=== PATIENT | male | born 1980 | race Caucasian/White ===

== ENCOUNTER 2017-06-03 23:15 | Inpatient (IN) | payer OTHER ==
[~2017-06-03] VITALS: Ht 180.3 cm; Wt 111.9 kg
[~2017-06-03 23:15] MED LIST: MAGN400T6 PO; OXYC1TAB3 PO; PARO1TAB27 PO; PROP1TAB PO; THIA100T11 PO; TIZA1CAP2 PO; TRAZ1TAB8 PO; WARF-237 PO; WARF5TAB90 PO
[2017-06-03] MEDS ORDERED: SODIUM CHLORIDE 0.9% 1000ML 1,000 ML IV STA (23:43)
[2017-06-03] MEDS ORDERED: MoRPHine SULFATE 4 MG/ML 1 ML CARP\\VIAL IV STA (23:43)
[2017-06-03] MEDS ORDERED: ONDANSETRON INJ 2 MG/ML 2 ML VIAL IV. SCH (23:45)
--- NOTE | 2017-06-03 23:46 | EMERGENCY ROOM VISIT NOTE ---
History Report prepared by Mirlande: Trip Cesar Under the Supervision of: Dr. Hieu Hernandez D.O. First contact with patient: 23:39 Chief Complaint: ABDOMINAL PAIN Stated Complaint: EXTREME ABD PAIN Nursing Triage Summary: Patient reports bilateral abdominal pain radiating to flanks for the past 2 days. Patient also reports nausea, denies V/D. History of Present Illness The patient is a 36 year old male who presents to the Emergency Room with complaints of bilateral abdominal pain that began a couple days ago. He rates his pain a 9/10 in severity. He notes that his pain is radiating into his bilateral flanks as well as. This has never happened to the patient before. He denies any abdominal surgeries. 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 He denies any fevers, vomiting, diarrhea, or trauma to the area. He is currently nauseated. Source of History: patient Onset: a couple of days ago Position: abdomen (upper) Symptom Intensity: 9/10 Quality: sharp Timing: constant Associated Symptoms: + nausea, + back pain (bilateral flank), No fevers, No vomiting, No diarrhea Review of Systems See HPI for pertinent positives and negatives. A total of ten systems were reviewed and were otherwise negative. Past Medical & Surgical Medical Problems: (1) Abdominal pain (2) Depression (3) DVT (deep venous thrombosis) (4) Migraine (5) TBI (traumatic brain injury) Family History No significant family history Social History Smoking Status: Never Smoker Smokeless Tobacco Use: No Drug Use: none Marital Status: Housing Status: lives with significant other Occupation Status: unemployed Current/Historical Medications Scheduled Magnesium Oxide (Mag-Ox), 400 MG PO DAILY Paroxetine (Paxil), 60 MG PO DAILY Propranolol (Inderal), 60 MG PO DAILY Thiamine Hcl (Vitamin B-1), 100 MG PO DAILY Tizanidine Hcl (Tizanidine Hcl), 4 MG PO HS Trazodone Hcl (Desyrel), 100 MG PO HS Warfarin Sod (Coumadin), 20 MG PO 3XWK Warfarin Sodium (Coumadin), 15 MG PO 4XWK Allergies Coded Allergies: Topiramate (Verified Allergy, Unknown, ? SUICIDAL IDEATIONS, 06/04/17) Physical Exam Vital Signs Date Time Temp Pulse Resp B/P (MAP) Pulse Ox O2 Delivery O2 Flow Rate FiO2 06/04/17 02:11 95 18 136/74 96 Room Air 06/04/17 00:45 88 18 137/80 96 Room Air 06/04/17 00:00 94 06/03/17 23:17 36.9 115 20 139/88 93 Room Air Physical Exam GENERAL: Awake, alert, well-appearing, in no distress HENT: Normocephalic, atraumatic. Oropharynx unremarkable. EYES: Normal conjunctiva. Sclera non-icteric. NECK: Supple. No nuchal rigidity. FROM. No JVD. RESPIRATORY: Clear to auscultation. CARDIAC: Regular rate, normal rhythm. Extremities warm and well perfused. Pulses equal. ABDOMEN: Soft, non-distended. RUQ, LUQ, and mid epigastric tenderness to palpation. No rebound or guarding. No masses. RECTAL: Deferred. MUSCULOSKELETAL: Chest examination reveals no tenderness. The back is symmetrical on inspection without obvious abnormality. There is no CVA tenderness to palpation. No joint edema. Bilateral flank tenderness to palpation. LOWER EXTREMITIES: Calves are equal size bilaterally and non-tender. No edema. No discoloration. NEURO: Normal sensorium. No sensory or motor deficits noted. SKIN: No rash or jaundice noted. Medical Decision & Procedures ER Provider Diagnostic Interpretation: Radiology results as stated below per my review and radiologist interpretation: CT ABDOMEN & PELVIS: There is mild bilateral perinephric and periureteral fat stranding. There is thickening and hyperemia of the urothelium of the bilateral renal pelvises and ureters. Findings are concerning for pyelonephritis. There is mild haziness of the urinary bladder wall. Correlate with urinalysis. No bowel obstruction, appendicitis, or diverticulitis. Radiologist: Inocente Chadwick M.D. Laboratory Results 06/04/17 00:01 Red Blood Count 5.33, Mean Corpuscular Volume 85.6, Mean Corpuscular Hemoglobin 31.9, Mean Corpuscular Hemoglobin Concent 37.3, Mean Platelet Volume 10.2, Neutrophils (%) (Auto) 56.3, Lymphocytes (%) (Auto) 30.3, Monocytes (%) (Auto) 11.1, Eosinophils (%) (Auto) 1.7, Basophils (%) (Auto) 0.3, Neutrophils # (Auto ) 5.56, Lymphocytes # (Auto) 2.99, Monocytes # (Auto) 1.10, Eosinophils # (Auto ) 0.17, Basophils # (Auto) 0.03 06/04/17 00:01 Test 06/04/17 00:01 06/04/17 01:10 White Blood Count 9.88 K/uL (4.8-10.8) Red Blood Count 5.33 M/uL (4.7-6.1) Hemoglobin 17.0 g/dL (14.0-18.0) Hematocrit 45.6 % (42-52) Mean Corpuscular Volume 85.6 fL (80-100) Mean Corpuscular Hemoglobin 31.9 pg (25-34) Mean Corpuscular Hemoglobin Concent 37.3 g/dl (32-36) Platelet Count 282 K/uL (130-400) Mean Platelet Volume 10.2 fL (7.4-10.4) Neutrophils (%) (Auto) 56.3 % Lymphocytes (%) (Auto) 30.3 % Monocytes (%) (Auto) 11.1 % Eosinophils (%) (Auto) 1.7 % Basophils (%) (Auto) 0.3 % Neutrophils # (Auto) 5.56 K/uL (1.4-6.5) Lymphocytes # (Auto) 2.99 K/uL (1.2-3.4) Monocytes # (Auto) 1.10 K/uL (0.11-0.59) Eosinophils # (Auto) 0.17 K/uL (0-0.5) Basophils # (Auto) 0.03 K/uL (0-0.2) RDW Standard Deviation 41.0 fL (36.4-46.3) RDW Coefficient of Variation 13.1 % (11.5-14.5) Immature Granulocyte % (Auto) 0.3 % Immature Granulocyte # (Auto) 0.03 K/uL (0.00-0.02) Prothrombin Time > 100.0 SECONDS Prothromb Time International Ratio > 8.0 (0.9-1.1) Anion Gap 9.0 mmol/L (3-11) Est Creatinine Clear Calc Drug Dose 109.4 ml/min Estimated GFR () 89.6 Estimated GFR (Non- 77.3 BUN/Creatinine Ratio 9.4 (10-20) Calcium Level 8.6 mg/dl (8.5-10.1) Total Bilirubin 0.3 mg/dl (0.2-1) Direct Bilirubin < 0.1 mg/dl (0-0.2) Aspartate Amino Transf (AST/SGOT) 31 U/L (15-37) Alanine Aminotransferase (ALT/SGPT) 54 U/L (12-78) Alkaline Phosphatase 142 U/L (45-117) Total Protein 7.8 gm/dl (6.4-8.2) Albumin 3.8 gm/dl (3.4-5.0) Lipase 252 U/L (73-393) Ethyl Alcohol mg/dL 127.0 mg/dl (0-3) Urine Color YELLOW Urine Appearance CLEAR (CLEAR) Urine pH 5.0 (4.5-7.5) Urine Specific [place] 1.019 (1.000-1.030) Urine Protein TRACE (NEG) Urine Glucose (UA) NEG (NEG) Urine Ketones NEG (NEG) Urine Occult Blood 3+ (NEG) Urine Nitrite NEG (NEG) Urine Bilirubin NEG (NEG) Urine Urobilinogen NEG (NEG) Urine Leukocyte Esterase NEG (NEG) Urine WBC (Auto) 0 /hpf (0-5) Urine RBC (Auto) 10-30 /hpf (0-4) Urine Hyaline Casts (Auto) 0 /lpf (0-5) Urine Epithelial Cells (Auto) 0-5 /lpf (0-5) Urine Bacteria (Auto) NEG (NEG) Laboratory results reviewed by me Medications Administered Medications (Trade) Dose Ordered Sig/Keily Route Start Time Stop Time Status Last Admin Dose Admin Sodium Chloride 1,000 ml @ 999 mls/hr Q1H1M STAT IV 06/03/17 23:43 06/04/17 00:43 DC 06/03/17 23:58 999 MLS/HR Ondansetron HCl (Zofran Inj) 4 mg Q6H IV. 06/03/17 23:45 07/03/17 23:44 06/03/17 23:58 4 MG Morphine Sulfate (MoRPHine SULFATE INJ) 4 mg NOW STAT IV 06/03/17 23:43 06/03/17 23:46 DC 06/03/17 23:59 4 MG Morphine Sulfate (MoRPHine SULFATE INJ) 4 mg NOW STAT IV 06/04/17 01:17 06/04/17 01:18 DC 9/9/17 01:21 4 MG Ondansetron HCl (Zofran Inj) 4 mg NOW STAT IV 06/04/17 01:17 06/04/17 01:18 DC 06/04/17 01:21 4 MG Phytonadione 5 mg/ Sodium Chloride 50.5 ml @ 101 mls/hr ONE ONCE IV 06/04/17 03:00 06/04/17 03:29 DC 06/04/17 03:39 101 MLS/HR ED Course 2339: The patient was evaluated in room A4B. A complete history and physical exam was performed. 2343: Ordered Morphine Sulfate 4 mg IV, Sodium Chloride 1000 ml @ 999 mls/hr IV 2345: Ordered Zofran Inj 4 mg IV 0117: Ordered Zofran Inj 4 mg IV, Morphine Sulfate 4 gm IV 0300: Ordered Phytonadione 5 mg/ Sodium Chloride 50.5 ml @ 101 mls/hr Protocol IV 0308: Upon reexamination, the patient was resting. I discussed the test results and treatment plan with him. I discussed the patient's case with Dr. Jarrett Johnson. The patient will be evaluated for further management. Medical Decision Differential diagnoses include gastritis, gastroenteritis, cholecystitis, pancreatitis, and bowel obstruction. Resting in no distress continues to complain of pain. Case was discussed with the Hospitalist for admit; patient continued to request pain medicine multiple times however and has no etiology on CT for significant pain. Patient does have hematuria and an elevated INR. Patient did receive IV vitamin K, patient will be admitted for continued abdominal pain elevated INR and further differentiate what is actually going on with this patient Medication Reconcilliation Current Medication List: was personally reviewed by me Blood Pressure Screening Patient's blood pressure: Elevated blood pressure Blood pressure disposition: Elevated BP felt to be situational (secondary to pain) Consults Time Called: 0305 Consulting Physician: Dr. Jarrett Johnson Returned Call: [phone] Discussed the patient's case. The patient will be evaluated for further treatment and disposition. Impression Primary Impression: Abdominal pain Additional Impressions: Elevated INR Hematuria Scribe Attestation The scribe's documentation has been prepared under my direction and personally reviewed by me in its entirety. I confirm that the note above accurately reflects all work, treatment, procedures, and medical decision making performed by me. Departure Information Dispostion Being Evaluated By Hospitalist Referrals Palak Copeland M.D. (PCP) Patient Instructions [facility] Problem Qualifiers
[2017-06-04] MEDS ORDERED: OPTIRAY 320 IV PRN
[2017-06-04 00:10] LABS: BASO % 0.3 %; BASO ABS # 0.03 K/uL (0-0.2); COMPLETE YES; EOS % 1.7 %; HEMATOCRIT 45.6 % (42-52); IG% 0.3 %; LYMPH % 30.3 %; LYMPH ABS # 2.99 K/uL (1.2-3.4); MEAN CELL VOLUME 85.6 fL (80-100); MEAN CORPUSCULAR HEMOGLOBIN 31.9 pg (25-34); MEAN CORPUSCULAR HGB CONC 37.3 g/dl (32-36); MEAN PLATELET VOLUME 10.2 fL (7.4-10.4); MONO % 11.1 %; NEUT % 56.3 %; PLATELET COUNT 282 K/uL (130-400); RED BLOOD COUNT 5.33 M/uL (4.7-6.1); WHITE BLOOD COUNT 9.88 K/uL (4.8-10.8)
[2017-06-04 00:39] LABS: ALT/SGPT 54 U/L (12-78); BLOOD UREA NITROGEN 11 mg/dl (7-18); BUN/CREATININE RATIO 9.4 (10-20); CALCIUM 8.6 mg/dl (8.5-10.1); CARBON DIOXIDE 26 mmol/L (21-32); CHLORIDE 102 mmol/L (98-107); GLUCOSE 112 mg/dl (70-99); POTASSIUM 3.8 mmol/L (3.5-5.1); SODIUM 137 mmol/L (136-145)
[2017-06-04 00:42] LABS: ALKALINE PHOSPHATASE 142 U/L (45-117); AST/SGOT 31 U/L (15-37)
[2017-06-04 00:54] LABS: PROTHROMBIN TIME (PATIENT) > 100.0 SECONDS (9.0-12.0)
[2017-06-04] MEDS ORDERED: MoRPHine SULFATE 4 MG/ML 1 ML CARP\\VIAL IV STA (01:17)
[2017-06-04] MEDS ORDERED: ONDANSETRON INJ 2 MG/ML 2 ML VIAL IV STA (01:17)
[2017-06-04 01:26] LABS: INR > 8.0 (0.9-1.1)
[2017-06-04 02:19] LABS: URINE APPEARANCE CLEAR (CLEAR); URINE BILIRUBIN NEG (NEG); URINE COLOR YELLOW; URINE EPITHELIAL CELL AUTO 0-5 /lpf (0-5); URINE NITRITE NEG (NEG); URINE SPECIFIC GRAVITY 1.019 (1.000-1.030); UROBILINOGEN NEG (NEG); ZZUR CULT IF INDIC CLEAN CATCH NO
[2017-06-04 02:20] LABS: MANUAL MICROSCOPIC REQUIRED? NO; REVIEW REQ? NO
[2017-06-04] MEDS ORDERED: PHYTONADIONE INJ 5 MG in SODIUM CHLORIDE 0.9% 50ML 50 ML IV ONE (03:00)
[2017-06-04] MEDS ORDERED: MULTI-VITAMIN INFUSION INJ 10 ML, THIAMINE HCL INJ 100 MG, FoLIC ACID INJ 1 MG in SODIU... IV ONE (04:01)
[2017-06-04] MEDS ORDERED: HYDROmorphone INJ 0.5 MG/0.5 ML SYR ONE (04:05)
[2017-06-04] MEDS ORDERED: PANTOprazole INJ 40 MG in SYRINGE 0 ML IV STA (04:12)
[2017-06-04] MEDS ORDERED: CYCLOBENZAPRINE HCL 5 MG TAB PO ONE (04:12)
[2017-06-04] MEDS ORDERED: HYDROmorphone INJ 0.5 MG/0.5 ML SYR IV STA ×2 (04:14→05:28)
[2017-06-04] MEDS ORDERED: ACETAMINOPHEN 325 MG TAB PO PRN (04:15)
[2017-06-04] MEDS ORDERED: CYCLOBENZAPRINE HCL 5 MG TAB PO PRN (04:15)
[2017-06-04] MEDS ORDERED: LORAZEPAM 1 MG TAB PO PRN ×2 (04:15→07:00)
[2017-06-04] MEDS ORDERED: ONDANSETRON INJ 2 MG/ML 2 ML VIAL IV PRN (04:15)
--- NOTE | 2017-06-04 04:28 | History and Physical ---
History & Physical Date & Time of Service: Jun 04, 2017 at 04:15 Chief Complaint: Extreme Abd Pain Primary Care Physician: No Doctor, Assigned History of Present Illness Source: patient, hospital records 36 year old male with history of Factor V Leiden Deficiency, on chronic coumadin , Depression, presenting with abdominal pain x few days. Patient states that he has been doing fine until last Tuesday when he rode his bike [place], [place]. The next day, he started to have bilateral flank pain. As the days went on, the b/l flank pain progressed, sharp, not related to movement. Denies dysuria, hematuria, fever/chills, admits to some nausea. Patient presented to the ER due to progression of pain. He admits to drinking ~ 4 bottles of beers today. He drinks weekly as per patient. CT abdomen showed possible pyelonephritis although UA was negative for bacteria , WBC but only positive for RBCs. INR 8.5. He was given Vit K IV and Morphine. On exam, patient was seen laying in bed, in mild distress due to pain. Reports flank pain is still severe. Denies other symptoms. Past Medical/Surgical History Medical Problems: (1) Depression Status: Chronic (2) DVT (deep venous thrombosis) Status: Resolved (3) Migraine Status: Chronic (4) TBI (traumatic brain injury) Status: Resolved Family History No significant family history Social History Smoking Status: Never Smoker Smokeless Tobacco Use: No Drug Use: none Marital Status: Occupational Status: unemployed Allergies Coded Allergies: Topiramate (Verified Allergy, Unknown, ? SUICIDAL IDEATIONS, 06/04/17) Home Medications Scheduled Magnesium Oxide (Mag-Ox), 400 MG PO DAILY Paroxetine (Paxil), 60 MG PO DAILY Propranolol (Inderal), 60 MG PO DAILY Thiamine Hcl (Vitamin B-1), 100 MG PO DAILY Tizanidine Hcl (Tizanidine Hcl), 4 MG PO HS Trazodone Hcl (Desyrel), 100 MG PO HS Warfarin Sod (Coumadin), 20 MG PO 3XWK Warfarin Sodium (Coumadin), 15 MG PO 4XWK Review of Systems Constitutional- no fever; no weight loss Eyes- no acute visual changes ENT- no sinus drainage; no pharyngitis Pulmonary- no cough, no wheezing, no shortness of breath Cardiac- no chest pain, no palpitations, no orthopnea, no dependent edema GI- (+) as noted above - no dysuria, no hematuria Musculoskeletal- no arthralgias, no myalgias Derm- no rashes, no new skin lesions, no changing skin lesions Hematologic- no unusual bruising, no unusual bleeding Lymphatics- no adenopathy Endocrine- no polyuria or polydipsia; no heat or cold intolerance Neuro- no headaches, no focal neurologic symptoms Psych- no anxiety, no depression Physical Exam Vital Signs Date Time Temp Pulse Resp B/P (MAP) Pulse Ox O2 Delivery O2 Flow Rate FiO2 06/04/17 04:14 85 06/04/17 04:09 89 16 138/78 94 Room Air 06/04/17 02:11 95 18 136/74 96 Room Air 06/04/17 00:45 88 18 137/80 96 Room Air 06/04/17 00:00 94 06/03/17 23:17 36.9 115 20 139/88 93 Room Air General Appearance: WD/WN, + mild distress (due to pain, but not in respiratory ) Head: normocephalic, atraumatic Eyes: normal inspection, EOMI, sclerae normal ENT: normal ENT inspection, hearing grossly normal, pharynx normal Neck: supple, no adenopathy, thyroid normal, no JVD, trachea midline Respiratory/Chest: chest non-tender, lungs clear, normal breath sounds, no respiratory distress, no accessory muscle use Cardiovascular: regular rate, rhythm, no edema, no JVD, no murmur, normal peripheral pulses Abdomen/GI: normal bowel sounds, non tender, soft, no organomegaly, + pertinent finding Back: normal inspection, no CVA tenderness, + pertinent finding (no flank tenderness) Extremities/Musculoskelatal: normal inspection, no calf tenderness, no pedal edema Neurologic/Psych: flow coordinator II-XII nml as tested, no motor/sensory deficits, alert, normal mood/affect, oriented x 3 Skin: normal color, warm/dry, no rash Lymphatic: no adenopathy Diagnostics Laboratory Results Results Past 24 Hours Test 06/04/17 00:01 06/04/17 01:10 Range/Units White Blood Count 9.88 4.8-10.8 K/uL Red Blood Count 5.33 4.7-6.1 M/uL Hemoglobin 17.0 14.0-18.0 g/dL Hematocrit 45.6 42-52 % Mean Corpuscular Volume 85.6 80-100 fL Mean Corpuscular Hemoglobin 31.9 25-34 pg Mean Corpuscular Hemoglobin Concent 37.3 32-36 g/dl Platelet Count 282 130-400 K/uL Mean Platelet Volume 10.2 7.4-10.4 fL Neutrophils (%) (Auto) 56.3 % Lymphocytes (%) (Auto) 30.3 % Monocytes (%) (Auto) 11.1 % Eosinophils (%) (Auto) 1.7 % Basophils (%) (Auto) 0.3 % Neutrophils # (Auto) 5.56 1.4-6.5 K/uL Lymphocytes # (Auto) 2.99 1.2-3.4 K/uL Monocytes # (Auto) 1.10 0.11-0.59 K/uL Eosinophils # (Auto) 0.17 0-0.5 K/uL Basophils # (Auto) 0.03 0-0.2 K/uL RDW Standard Deviation 41.0 36.4-46.3 fL RDW Coefficient of Variation 13.1 11.5-14.5 % Immature Granulocyte % (Auto) 0.3 % Immature Granulocyte # (Auto) 0.03 0.00-0.02 K/uL Prothrombin Time > 100.0 9.0-12.0 SECONDS Prothromb Time International Ratio > 8.0 0.9-1.1 Sodium Level 137 136-145 mmol/L Potassium Level 3.8 3.5-5.1 mmol/L Chloride Level 102 98-107 mmol/L Carbon Dioxide Level 26 21-32 mmol/L Anion Gap 9.0 3-11 mmol/L Blood Urea Nitrogen 11 7-18 mg/dl Creatinine 1.20 0.60-1.40 mg/dl Est Creatinine Clear Calc Drug Dose 109.4 ml/min Estimated GFR () 89.6 Estimated GFR (Non- 77.3 BUN/Creatinine Ratio 9.4 10-20 Random Glucose 112 70-99 mg/dl Calcium Level 8.6 8.5-10.1 mg/dl Total Bilirubin 0.3 0.2-1 mg/dl Direct Bilirubin < 0.1 0-0.2 mg/dl Aspartate Amino Transf (AST/SGOT) 31 15-37 U/L Alanine Aminotransferase (ALT/SGPT) 54 12-78 U/L Alkaline Phosphatase 142 45-117 U/L Total Protein 7.8 6.4-8.2 gm/dl Albumin 3.8 3.4-5.0 gm/dl Lipase 252 73-393 U/L Ethyl Alcohol mg/dL 127.0 0-3 mg/dl Urine Color YELLOW Urine Appearance CLEAR CLEAR Urine pH 5.0 4.5-7.5 Urine Specific [place] 1.019 1.000-1.030 Urine Protein TRACE NEG Urine Glucose (UA) NEG NEG Urine Ketones NEG NEG Urine Occult Blood 3+ NEG Urine Nitrite NEG NEG Urine Bilirubin NEG NEG Urine Urobilinogen NEG NEG Urine Leukocyte Esterase NEG NEG Urine WBC (Auto) 0 0-5 /hpf Urine RBC (Auto) 10-30 0-4 /hpf Urine Hyaline Casts (Auto) 0 0-5 /lpf Urine Epithelial Cells (Auto) 0-5 0-5 /lpf Urine Bacteria (Auto) NEG NEG Diagnostic Radiology CT abdomen preliminary read: mild perinephric, periureteral stranding, possible Pyelonephritis EKG HR 85, sinus rhythm, non specific t wave inversion lead II Impression Assessment and Plan 36 year old male with history of Factor V Leiden Deficiency, on chronic coumadin , Depression, presenting with abdominal pain x few days. BILATERAL FLANK PAIN POSSIBLE PYELONEPHRITIS, MUSCULAR STRAIN - follow up formal CT abdomen report - ff up urine culture start empiric Ceftriaxone 1mg IV daily PRN Dilaudid 0.5mg IV for severe pain - PRN Flexeril, warm compress SUPRATHERAPEUTIC INR FACTOR V LEIDEN DEFICIENCY, ON CHRONIC COUMADIN - no signs of gross bleeding (+) microscopic hematuria - given Vit K 5mg IV at the ER - repeat INR at 8am ALCOHOL INTOXICATION - alcohol level 120s - admits to drinking 4 beers today drinks weekly - declines Gabapentin taper for alcohol withdrawal prevention will place Alcohol withdrawal protocol including Banana bag and PRN Ativan MICROSCOPIC HEMATURIA - denies gross hematuria - ff up formal CT abdomen/pelvis report monitor DEPRESSION - stable on Paroxetine, Trazodone DVT prophylaxis SCDs INR >8 FULL CODE PER PATIENT DISPOSITION anticipate d/c home when medically stable follows up with a non-[facility] PCP VTE Prophylaxis VTE Risk Assessment Done? Y/N: Yes Risk Level: Moderate Given or contraindicated: SCD's
[2017-06-04 05:30] VITALS: BP 159/98; PULSE 81; TEMP 36.9; O2SAT 98; Ht 180.3 cm; Wt 111.9 kg
[2017-06-04] MEDS ORDERED: NSS + 20MEQ KCL 1000ML 1,000 ML IV SCH ×2 (05:30→12:00)
[2017-06-04] MEDS ORDERED: CEFTRIAXONE SOD INJ 1 GM in DEXTROSE 5% ADD-VANTAGE 50ML 50 ML IV SCH (06:00)
--- NOTE | 2017-06-04 06:24 | DIAGNOSTIC IMAGING REPORT ---
ABD/PELVIS IV CONTRAST ONLY CT DOSE: 781.93 mGy.cm HISTORY: Flank pain pain TECHNIQUE: Multiaxial CT images of the abdomen and pelvis were performed following the use of intravenous contrast. A dose lowering technique was utilized adhering to the principles of ALARA. COMPARISON STUDY: 07/16/2016 FINDINGS: Lung bases are clear. Liver spleen and pancreas are unremarkable. Mild wall edematous change of the ureters and renal pelves bilaterally. Pyelonephritis is considered. Trace perinephric infiltrative change. Nonobstructive bowel pattern. Bladder is midline. IMPRESSION: Possible bilateral bilateral findings. Nonobstructive bowel pattern. The above report was generated using voice recognition software. It may contain grammatical, syntax or spelling errors. Electronically signed by: Sourav Mccauley M.D. 06/04/2017 6:23 AM Dictated Date/Time: 06/04/2017 6:22 AM
[2017-06-04 07:49] LABS: PROTHROMBIN TIME (PATIENT) 68.4 SECONDS (9.0-12.0)
[2017-06-04 07:56] LABS: INR 5.9 (0.9-1.1)
[2017-06-04 07:57] VITALS: BP 131/87; PULSE 84; TEMP 36.8; O2SAT 93
[2017-06-04] MEDS ORDERED: THIAMINE HCL 100 MG TAB PO SCH (09:00)
[2017-06-04] MEDS ORDERED: PROPRANOLOL HCL 20 MG TAB PO SCH (09:00)
[2017-06-04] MEDS ORDERED: PAROXETINE 20 MG TAB PO SCH (09:00)
[2017-06-04] MEDS ORDERED: MAGNESIUM OXIDE 400 MG TAB PO SCH (09:00)
[2017-06-04] MEDS ORDERED: DOCUSATE SODIUM/SENNA 50/8.6MG TAB PO SCH (09:00)
[2017-06-04] MEDS: HYDROmorphone INJ 0.5 MG/0.5 ML SYR IV PRN ×3 (09:24→17:20)
[2017-06-04] MEDS ORDERED: LORAZEPAM INJ 2 MG in SYRINGE 1 ML IV PRN (10:45)
[2017-06-04 16:14] VITALS: BP 142/89; PULSE 71; TEMP 36.7; O2SAT 95
--- NOTE | 2017-06-04 17:50 | DIAGNOSTIC IMAGING REPORT ---
ABDOMEN COMPLETE (US) HISTORY: Pain abdomenal pain. COMPARISON: None. FINDINGS: Pancreas: The pancreas demonstrates a normal echotexture. Liver: Mild fatty infiltration Gallbladder: Trace gallbladder sludge. No shadowing gallstones. CBD: 5 mm Kidneys: No hydronephrosis. Spleen: Slightly prominent at 13 cm Aorta: Normal in caliber. IVC: Patent. IMPRESSION: 1. Slight fatty infiltration of liver. 2. Trace gallbladder sludge. 3. Normal caliber bile ducts. 4. Mild splenomegaly at 13 cm. The above report was generated using voice recognition software. It may contain grammatical, syntax or spelling errors. Electronically signed by: Sourav Mccauley M.D. 06/04/2017 5:49 PM Dictated Date/Time: 06/04/2017 5:48 PM
--- NOTE | 2017-06-04 18:36 | Progress Note ---
Internal Med Progress Note Date of Service: Jun 04, 2017. Provider Documentation: SUBJECTIVE: Patient seen and examined at bedside. Reports abdominal pain resolving. Physical Exam remarkable for tenderness left flank, costovertebral tenderness. Patient denies fevers, chills, dysuria, bowel movements, shortness of breath or chest pain OBJECTIVE: Exam: General-NAD, speaking in full sentences, on room air Eyes- EOMI, no jaundice ENT-nontender, no oral or nasal exudates Neck- nontender, no JVD, trachea midline Lungs- CTABL, no crackles, no wheezing on lung auscultation. 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 Patient has been given narcotic medications for abdominal and flank pain. CT Abdomen/ Pelvis IV Contrast exam with initial radiology report: "FINDINGS: Lung bases are clear. Liver spleen and pancreas are unremarkable. Mild wall edematous change of the ureters and renal pelves bilaterally. Pyelonephritis is considered. Trace perinephric infiltrative change. Nonobstructive bowel pattern. Bladder is midline. IMPRESSION: Possible bilateral bilateral findings. Nonobstructive bowel pattern" Medical hospitalist physician spoke with radiologist who read the CT scan in regards to whether or not there may be kidney stone. Radiologists reports no evidence of kidney stone but suggest perhaps maybe a kidney stone could have passed already. In addition there is no strong evidence for inflammation conclusively supporting pyelonephritis in the absence of fever and without significantly high WBC. Subsequent ultrasound renal without significant findings and report of: "Pancreas: The pancreas demonstrates a normal echotexture. Liver: Mild fatty infiltration Gallbladder: Trace gallbladder sludge. No shadowing gallstones. CBD : 5 mm. Kidneys: No hydronephrosis. Spleen: Slightly prominent at 13 cm. Aorta: Normal in caliber. IVC: Patent." Disposition/ Discharge Instructions Patient is to be discharged to home. Patient asked to restart Coumadin at half of his home regimen daily dose starting 06/05/17. Given prescription for INR check to be done at [facility] anticoagulation clinic on . Patient also reports that he is following [facility] anticoagulation clinic in [place] and plans to go there to continue his Coumadin follow up. Patient use to follow with [facility] but reports that his [place] primary [place] retired and he has not been able to follow up yet with a new medical doctor and cannot recall his appointment with the new medical doctor. On [facility] outpatient records, there was an appointment associated with [facility] with Dr. Nirmal Sharif. [facility] at [facility] will also to connect with patient to give him appointment to a [facility] affiliated primary medical doctor. Patient's contact number is [phone]. The [facility] appointment line is [phone] Because of abdominal and flank pain with supratherapeutic INR, patient is instructed to return to the Emergency room if pain returns acutely, if blood in urine, or blood in stool, or high fevers, or vomiting Vital Signs: Date Time Temp Pulse Resp B/P (MAP) Pulse Ox O2 Delivery O2 Flow Rate FiO2 06/04/17 16:14 36.7 71 18 142/89 (106) 95 Room Air 06/04/17 07:57 36.8 84 18 131/87 (102) 93 Room Air 06/04/17 07:17 Room Air 06/04/17 05:30 36.9 81 20 159/98 98 Room Air 06/04/17 04:14 85 06/04/17 04:09 89 16 138/78 94 Room Air 06/04/17 02:11 95 18 136/74 96 Room Air 06/04/17 00:45 88 18 137/80 96 Room Air 06/04/17 00:00 94 06/03/17 23:17 36.9 115 20 139/88 93 Room Air Lab Results: Results Past 24 Hours Test 06/04/17 00:01 06/04/17 01:10 06/04/17 06:53 Range/Units White Blood Count 9.88 4.8-10.8 K/uL Red Blood Count 5.33 4.7-6.1 M/uL Hemoglobin 17.0 14.0-18.0 g/dL Hematocrit 45.6 42-52 % Mean Corpuscular Volume 85.6 80-100 fL Mean Corpuscular Hemoglobin 31.9 25-34 pg Mean Corpuscular Hemoglobin Concent 37.3 32-36 g/dl Platelet Count 282 130-400 K/uL Mean Platelet Volume 10.2 7.4-10.4 fL Neutrophils (%) (Auto) 56.3 % Lymphocytes (%) (Auto) 30.3 % Monocytes (%) (Auto) 11.1 % Eosinophils (%) (Auto) 1.7 % Basophils (%) (Auto) 0.3 % Neutrophils # (Auto) 5.56 1.4-6.5 K/uL Lymphocytes # (Auto) 2.99 1.2-3.4 K/uL Monocytes # (Auto) 1.10 0.11-0.59 K/uL Eosinophils # (Auto) 0.17 0-0.5 K/uL Basophils # (Auto) 0.03 0-0.2 K/uL RDW Standard Deviation 41.0 36.4-46.3 fL RDW Coefficient of Variation 13.1 11.5-14.5 % Immature Granulocyte % (Auto) 0.3 % Immature Granulocyte # (Auto) 0.03 0.00-0.02 K/uL Prothrombin Time > 100.0 68.4 9.0-12.0 SECONDS Prothromb Time International Ratio > 8.0 5.9 0.9-1.1 Sodium Level 137 136-145 mmol/L Potassium Level 3.8 3.5-5.1 mmol/L Chloride Level 102 98-107 mmol/L Carbon Dioxide Level 26 21-32 mmol/L Anion Gap 9.0 3-11 mmol/L Blood Urea Nitrogen 11 7-18 mg/dl Creatinine 1.20 0.60-1.40 mg/dl Est Creatinine Clear Calc Drug Dose 109.4 ml/min Estimated GFR () 89.6 Estimated GFR (Non- 77.3 BUN/Creatinine Ratio 9.4 10-20 Random Glucose 112 70-99 mg/dl Calcium Level 8.6 8.5-10.1 mg/dl Total Bilirubin 0.3 0.2-1 mg/dl Direct Bilirubin < 0.1 0-0.2 mg/dl Aspartate Amino Transf (AST/SGOT) 31 15-37 U/L Alanine Aminotransferase (ALT/SGPT) 54 12-78 U/L Alkaline Phosphatase 142 45-117 U/L Total Protein 7.8 6.4-8.2 gm/dl Albumin 3.8 3.4-5.0 gm/dl Lipase 252 230 73-393 U/L Ethyl Alcohol mg/dL 127.0 0-3 mg/dl Urine Color YELLOW Urine Appearance CLEAR CLEAR Urine pH 5.0 4.5-7.5 Urine Specific [place] 1.019 1.000-1.030 Urine Protein TRACE NEG Urine Glucose (UA) NEG NEG Urine Ketones NEG NEG Urine Occult Blood 3+ NEG Urine Nitrite NEG NEG Urine Bilirubin NEG NEG Urine Urobilinogen NEG NEG Urine Leukocyte Esterase NEG NEG Urine WBC (Auto) 0 0-5 /hpf Urine RBC (Auto) 10-30 0-4 /hpf Urine Hyaline Casts (Auto) 0 0-5 /lpf Urine Epithelial Cells (Auto) 0-5 0-5 /lpf Urine Bacteria (Auto) NEG NEG Amylase Level 51 25-115 U/L Microbiology Results 06/04/17 Urine Culture, Received Pending
[2017-06-04] MEDS ORDERED: ACET-1222 OR (19:04)
--- NOTE | 2017-06-04 19:09 | Discharge Instructions ---
Discharge Instructions Date of Service Jun 04, 2017. Admission Reason for Admission: Abdominal Pain Discharge Discharge Diagnosis / Problem: abdominal pain, flank pain, suprathereuputic INR , history thromboembolism Discharge Goals Goal(s): Decrease discomfort Activity Recommendations Activity Limitations: as noted below Lifting Limitations: gradually increase as tolerated Exercise/Sports Limitations: rest today Shower/Bathe: no limitations . Instructions / Follow-Up Instructions / Follow-Up Disposition/ Discharge Instructions Patient is to be discharged to home. Patient asked to restart Coumadin at half of his home regimen daily dose starting 06/05/17. Given prescription for INR check to be done at [facility] anticoagulation clinic on . Patient also reports that he is following [facility] anticoagulation clinic in [place] and plans to go there to continue his Coumadin follow up. Patient use to follow with [facility] but reports that his [place] primary care doctor retired and he has not been able to follow up yet with a new medical doctor and cannot recall his appointment with the new medical doctor. On [facility] outpatient records, there was an appointment associated with [facility] with Dr. Nirmal Sharif. [facility] at [facility] will also to connect with patient to give him appointment to a [facility] affiliated primary medical doctor. Patient's contact number is [phone]. The [facility] appointment line is [phone] Because of abdominal and flank pain with supratherapeutic INR, patient is instructed to return to the Emergency room if pain returns acutely, if blood in urine, or blood in stool, or high fevers, or vomiting. Avoid NSAID. Avoid Alcohol Current Hospital Diet Patient's current hospital diet: Clear Liquid Diet Discharge Diet Recommended Diet: Regular Diet Pending Studies Studies pending at discharge: no Laboratory Results 06/04/17 00:01 Red Blood Count 5.33, Mean Corpuscular Volume 85.6, Mean Corpuscular Hemoglobin 31.9, Mean Corpuscular Hemoglobin Concent 37.3, Mean Platelet Volume 10.2, Neutrophils (%) (Auto) 56.3, Lymphocytes (%) (Auto) 30.3, Monocytes (%) (Auto) 11.1, Eosinophils (%) (Auto) 1.7, Basophils (%) (Auto) 0.3, Neutrophils # (Auto ) 5.56, Lymphocytes # (Auto) 2.99, Monocytes # (Auto) 1.10, Eosinophils # (Auto ) 0.17, Basophils # (Auto) 0.03 06/04/17 00:01 Test 06/04/17 00:01 06/04/17 01:10 06/04/17 06:53 White Blood Count 9.88 K/uL (4.8-10.8) Red Blood Count 5.33 M/uL (4.7-6.1) Hemoglobin 17.0 g/dL (14.0-18.0) Hematocrit 45.6 % (42-52) Mean Corpuscular Volume 85.6 fL (80-100) Mean Corpuscular Hemoglobin 31.9 pg (25-34) Mean Corpuscular Hemoglobin Concent 37.3 g/dl (32-36) Platelet Count 282 K/uL (130-400) Mean Platelet Volume 10.2 fL (7.4-10.4) Neutrophils (%) (Auto) 56.3 % Lymphocytes (%) (Auto) 30.3 % Monocytes (%) (Auto) 11.1 % Eosinophils (%) (Auto) 1.7 % Basophils (%) (Auto) 0.3 % Neutrophils # (Auto) 5.56 K/uL (1.4-6.5) Lymphocytes # (Auto) 2.99 K/uL (1.2-3.4) Monocytes # (Auto) 1.10 K/uL (0.11-0.59) Eosinophils # (Auto) 0.17 K/uL (0-0.5) Basophils # (Auto) 0.03 K/uL (0-0.2) RDW Standard Deviation 41.0 fL (36.4-46.3) RDW Coefficient of Variation 13.1 % (11.5-14.5) Immature Granulocyte % (Auto) 0.3 % Immature Granulocyte # (Auto) 0.03 K/uL (0.00-0.02) Anion Gap 9.0 mmol/L (3-11) Est Creatinine Clear Calc Drug Dose 109.4 ml/min Estimated GFR () 89.6 Estimated GFR (Non- 77.3 BUN/Creatinine Ratio 9.4 (10-20) Calcium Level 8.6 mg/dl (8.5-10.1) Total Bilirubin 0.3 mg/dl (0.2-1) Direct Bilirubin < 0.1 mg/dl (0-0.2) Aspartate Amino Transf (AST/SGOT) 31 U/L (15-37) Alanine Aminotransferase (ALT/SGPT) 54 U/L (12-78) Alkaline Phosphatase 142 U/L (45-117) Total Protein 7.8 gm/dl (6.4-8.2) Albumin 3.8 gm/dl (3.4-5.0) Ethyl Alcohol mg/dL 127.0 mg/dl (0-3) Urine Color YELLOW Urine Appearance CLEAR (CLEAR) Urine pH 5.0 (4.5-7.5) Urine Specific [place] 1.019 (1.000-1.030) Urine Protein TRACE (NEG) Urine Glucose (UA) NEG (NEG) Urine Ketones NEG (NEG) Urine Occult Blood 3+ (NEG) Urine Nitrite NEG (NEG) Urine Bilirubin NEG (NEG) Urine Urobilinogen NEG (NEG) Urine Leukocyte Esterase NEG (NEG) Urine WBC (Auto) 0 /hpf (0-5) Urine RBC (Auto) 10-30 /hpf (0-4) Urine Hyaline Casts (Auto) 0 /lpf (0-5) Urine Epithelial Cells (Auto) 0-5 /lpf (0-5) Urine Bacteria (Auto) NEG (NEG) Prothrombin Time 68.4 SECONDS (9.0-12.0) Prothromb Time International Ratio 5.9 (0.9-1.1) Amylase Level 51 U/L (25-115) Lipase 230 U/L (73-393) Date/Time Source Procedure Growth Status 06/04/17 09:52 Urine , Clean Catch Urine Culture Pending Received Medical Emergencies . Who to Call and When: Medical Emergencies: If at any time you feel your situation is an emergency, please call 911 immediately. . Non-Emergent Contact Non-Emergency issues call your: Hospital Doctor ([phone]) Call Non-Emergent contact if: you have a fever, your pain is not controlled, your pain is worsening, your pain is concerning you . . "Provider Documentation" section prepared by Riley Frye. . VTE Core Measure Inpt VTE Proph given/why not?: SCD's
--- NOTE | 2017-06-04 19:11 | Discharge Summary ---
Discharge Summary Date of Service Jun 04, 2017. Discharge Summary Admission Date: Jun 04, 2017 at 03:35 Discharge Date: Jun 04, 2017 Discharge Disposition: Home Principal Diagnosis: abdominal pain, flank pain, supratherapeutic INR while on coumadin for history of thromboembolism sceondary to reported history of favtor V Leiden deficiency Medication Reconciliation New Medications: Acetaminophen (Acetaminophen Extra Stren) 500 Mg Tab 1 TAB OR Q6 for Pain or Fever, #240 TAB Continued Medications: Magnesium Oxide (Mag-Ox) 400 Mg Tab 400 MG PO DAILY, TAB Paroxetine (Paxil) 20 Mg Tab 60 MG PO DAILY, TAB Propranolol (Inderal) 60 Mg Tab 60 MG PO DAILY, TAB Thiamine Hcl (Vitamin B-1) 100 Mg Tab 100 MG PO DAILY, TAB Tizanidine Hcl (Tizanidine Hcl) 4 Mg Cap 4 MG PO HS Trazodone Hcl (Desyrel) 100 Mg Tab 100 MG PO HS Warfarin Sod (Coumadin) 10 Mg Tab 20 MG PO 3XWK TAKE DAILY ON TUE/TUE/TUE Warfarin Sodium (Coumadin) 5 Mg Tab 15 MG PO 4XWK TAKE DAILY ON TUE///TUE Admission Information HPI (per Admitting provider): 36 year old male with history of Factor V Leiden Deficiency, on chronic coumadin , Depression, presenting with abdominal pain x few days. Patient states that he has been doing fine until last Tuesday when he [place] bike [place]. The next day, he started to have bilateral flank pain. As the days went on, the b/l flank pain progressed, sharp, not related to movement. Denies dysuria, hematuria, fever/chills, admits to some nausea. Patient presented to the ER due to progression of pain. He admits to drinking ~ 4 bottles of beers today. He drinks weekly as per patient. CT abdomen showed possible pyelonephritis although UA was negative for bacteria , WBC but only positive for RBCs. INR 8.5. He was given Vit K IV and Morphine. On exam, patient was seen laying in bed, in mild distress due to pain. Reports flank pain is still severe. Denies other symptoms. Physical Exam (per Admitting): General Appearance: WD/WN, + mild distress (due to pain, but not in respiratory) Head: normocephalic, atraumatic Eyes: normal inspection, EOMI, sclerae normal ENT: normal ENT inspection, hearing grossly normal, pharynx normal Neck: supple, no adenopathy, thyroid normal, no JVD, trachea midline Respiratory/Chest: chest non-tender, lungs clear, normal breath sounds, no respiratory distress, no accessory muscle use Cardiovascular: regular rate, rhythm, no edema, no JVD, no murmur, normal peripheral pulses Abdomen/GI: normal bowel sounds, non tender, soft, no organomegaly, + pertinent finding Back: normal inspection, no CVA tenderness, + pertinent finding (no flank tenderness) Extremities/Musculoskelatal: normal inspection, no calf tenderness, no pedal edema 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 as tested, no motor/sensory deficits, alert , normal mood/affect, oriented x 3 Skin: normal color, warm/dry, no rash Lymphatic: no adenopathy Hospital Course This is a 36 year old M who has been following in the [facility] clinic in [place] for INR checks while on coumadin for 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 Patient has been given narcotic medications for abdominal and flank pain. CT Abdomen/ Pelvis IV Contrast exam with initial radiology report: "FINDINGS: Lung bases are clear. Liver spleen and pancreas are unremarkable. Mild wall edematous change of the ureters and renal pelves bilaterally. Pyelonephritis is considered. Trace perinephric infiltrative change. Nonobstructive bowel pattern. Bladder is midline. IMPRESSION: Possible bilateral bilateral findings. Nonobstructive bowel pattern" Medical hospitalist physician spoke with radiologist who read the CT scan in regards to whether or not there may be kidney stone. Radiologists reports no evidence of kidney stone but suggest perhaps maybe a kidney stone could have passed already. In addition there is no strong evidence for inflammation conclusively supporting pyelonephritis in the absence of fever and without significantly high WBC. Subsequent ultrasound renal without significant findings and report of: "Pancreas: The pancreas demonstrates a normal echotexture. Liver: Mild fatty infiltration Gallbladder: Trace gallbladder sludge. No shadowing gallstones. CBD : 5 mm. Kidneys: No hydronephrosis. Spleen: Slightly prominent at 13 cm. Aorta: Normal in caliber. IVC: Patent." Disposition/ Discharge Instructions Patient is to be discharged to home. Patient asked to restart Coumadin at half of his home regimen daily dose starting 06/05/17. Given prescription for INR check to be done at [facility] anticoagulation clinic on . Patient also reports that he is following [facility] anticoagulation clinic in [place] and plans to go there to continue his Coumadin follow up. Patient use to follow with [facility] but reports that his [place] primary care doctor retired and he has not been able to follow up yet with a new medical doctor and cannot recall his appointment with the new medical doctor. On [facility] outpatient records, there was an appointment associated with [facility] with Dr. Nirmal Sharif. [facility] at [facility] will also to connect with patient to give him appointment to a [facility] affiliated primary medical doctor. Patient's contact number is [phone]. The [facility] appointment line is [phone] Because of abdominal and flank pain with supratherapeutic INR, patient is instructed to return to the Emergency room if pain returns acutely, if blood in urine, or blood in stool, or high fevers, or vomiting. Avoid NSAID. Avoid alcohol Total time spent on discharge = This includes examination of the patient, discharge planning, medication reconciliation, and communication with other providers. Discharge Instructions Disposition/ Discharge Instructions Patient is to be discharged to home. Patient asked to restart Coumadin at half of his home regimen daily dose starting 06/05/17. Given prescription for INR check to be done at [facility] anticoagulation clinic on . Patient also reports that he is following [facility] anticoagulation clinic in [place] and plans to go there to continue his Coumadin follow up. Patient use to follow with [facility] but reports that his [place] primary care doctor retired and he has not been able to follow up yet with a new medical doctor and cannot recall his appointment with the new medical doctor. On [facility] outpatient records, there was an appointment associated with [facility] with Dr. Nirmal Sharif. [facility] at [facility] will also to connect with patient to give him appointment to a [facility] affiliated primary medical doctor. Patient's contact number is [phone]. The [facility] appointment line is [phone] Because of abdominal and flank pain with supratherapeutic INR, patient is instructed to return to the Emergency room if pain returns acutely, if blood in urine, or blood in stool, or high fevers, or vomiting
[2017-06-04 19:27] VITALS: BP 142/89; PULSE 71; TEMP 36.7; O2SAT 95
[2017-06-04] MEDS ORDERED: TRAZODONE HCL 100 MG TAB PO SCH (21:00)
[2017-06-05] MEDS ORDERED: THIAMINE HCL 100 MG TAB PO SCH (04:15)
[2017-06-05] MEDS ORDERED: PANTOprazole INJ 40 MG in SYRINGE 0 ML IV SCH (11:00)
== END 2017-06-04 19:45 | disposition home or self-care (01) | DRG 392 ==
LOC: C.EDB 23:15 → C.MS2W 06-04 03:35 → ENRESERV 06-04 04:03
PROVIDERS: ADMIT Internal Medicine; ATTEND Hospitalist
DX: R10.9 Unspecified abdominal pain (principal); D68.51 Activated protein C resistance; R31.29 Other microscopic hematuria; F32.9 Major depressive disorder, single episode, unspecified; F10.129 Alcohol abuse with intoxication, unspecified; Z79.01 Long term (current) use of anticoagulants; Z79.899 Other long term (current) drug therapy; Z86.718 Personal history of other venous thrombosis and embolism

== ENCOUNTER 2017-07-11 10:02 | Emergency (ER) | payer OTHER ==
[~2017-07-11] VITALS: Ht 180.3 cm; Wt 115.5 kg
[~2017-07-11 10:02] MED LIST changes: +ACET-1222 OR; -MAGN400T6 PO; -OXYC1TAB3 PO; -PROP1TAB PO; -THIA100T11 PO; -TIZA1CAP2 PO; -TRAZ1TAB8 PO
[2017-07-11 10:09] VITALS: TEMP 36.9; Ht 180.3 cm; Wt 115.5 kg
[2017-07-11] MEDS ORDERED: WARF5TAB7 PO ×2 (10:34)
[2017-07-11] MEDS ORDERED: CLON1TAB3 PO (10:37)
[2017-07-11] MEDS ORDERED: PARO10TA PO (10:40)
[2017-07-11] MEDS ORDERED: BUPR100T8 PO (10:40)
[2017-07-11] MEDS ORDERED: SODIUM CHLORIDE 0.9% 1000ML 1,000 ML IV STA (11:00)
--- NOTE | 2017-07-11 11:04 | EMERGENCY ROOM VISIT NOTE ---
History Report prepared by Mirlande: Trudy Loving Under the Supervision of: Dr. Gregg Crouch M.D. First contact with patient: 10:30 Chief Complaint: OTHER COMPLAINT Stated Complaint: BLOOD CLOTS History of Present Illness The patient is a 36 year old white male with a past medical history of DVTs and HTN who presents to the ED with a cc of leg swelling and possible DVTs. The patient is on Coumadin but has not been taking it recently. Positive swelling in both legs, lightheadedness. Negative SOB, and chest pain. The patient was last diagnosed with DVTs in his right leg about 6 months ago. Source of History: patient Position: leg (bilateral) Associated Symptoms: No chest pain, No SOB Note: Positive swelling in both legs, lightheadedness. Review of Systems See HPI for pertinent positives and negatives. A total of ten systems were reviewed and were otherwise negative. Past Medical & Surgical Medical Problems: (1) Abdominal pain (2) Depression (3) DVT (deep venous thrombosis) (4) Migraine (5) TBI (traumatic brain injury) Family History No significant family history Social History Smoking Status: Never Smoker Drug Use: none Marital Status: Housing Status: lives with significant other Occupation Status: unemployed Current/Historical Medications Scheduled Bupropion (Wellbutrin Sr), 100 MG PO Q12 Clonazepam (Klonopin), 1 MG PO BID Enoxaparin (Lovenox), 120 MG SQ Q12H Magnesium Oxide (Mag-Ox), 400 MG PO DAILY Paroxetine Hcl (Paxil), 30 MG PO DAILY Propranolol (Inderal), 60 MG PO DAILY Thiamine Hcl (Vitamin B-1), 100 MG PO DAILY Tizanidine Hcl (Tizanidine Hcl), 4 MG PO HS Trazodone Hcl (Desyrel), 100 MG PO HS Warfarin Sod (Jantoven), 20 MG PO WK Warfarin Sod (Jantoven), 15 MG PO [id number] Warfarin Sodium (Coumadin), 10 MG PO DAILY Allergies Coded Allergies: Topiramate (Verified Allergy, Unknown, ? SUICIDAL IDEATIONS, 07/11/17) Physical Exam Vital Signs Date Time Temp Pulse Resp B/P (MAP) Pulse Ox O2 Delivery O2 Flow Rate FiO2 07/11/17 13:38 68 18 139/98 97 Room Air 07/11/17 11:42 65 18 124/91 96 Room Air 07/11/17 10:09 36.9 77 16 137/83 96 Room Air Physical Exam GENERAL: Awake, alert, well-appearing, NAD HENT: Normocephalic, atraumatic. EYES: Normal conjunctiva. Sclera non-icteric. NECK: Supple. No nuchal rigidity. FROM. RESPIRATORY: Lung sound clear, CTAB, no rhonchi, wheezing, crackles CARDIAC: RRR, no MRG ABDOMEN: Soft, NTND, BS+ MSK: No chest wall TTP, RLE abrasions, no LE edema, asymmetry, calor, erythema or calf pain. NV intact distally. NEURO: GCS 15, CN 2-12 intact, moves all 4s on command SKIN: No rash or jaundice noted. Medical Decision & Procedures ER Provider Diagnostic Interpretation: Radiology results as stated below per my review and radiologist interpretation: ULTRASOUND VENOUS DOPPLER LWR EXT BILA CLINICAL HISTORY: Subtherapeutic INRs. History of DVT. COMPARISON STUDY: Venous Doppler ultrasound of the right lower extremity dated 03/02/2017 FINDINGS: On the right, no thrombus is visualized in the common femoral, superficial femoral, popliteal vein, or proximal trifurcation veins. On the left there is a duplicated superficial femoral vein. There is thrombus within the posterior superficial femoral vein branch, as well as thrombus in the left popliteal, peroneal and posterior tibial veins. IMPRESSION: 1. No evidence of right lower extremity DVT 2. Left lower extremity DVT involving the superficial femoral vein, left popliteal vein, and peroneal posterior tibial veins. Electronically signed by: Kerwin Hampton M.D. Laboratory Results 07/11/17 11:18 Red Blood Count 4.41, Mean Corpuscular Volume 92.1, Mean Corpuscular Hemoglobin 31.5, Mean Corpuscular Hemoglobin Concent 34.2, Mean Platelet Volume 10.4, Neutrophils (%) (Auto) 54.1, Lymphocytes (%) (Auto) 27.1, Monocytes (%) (Auto) 14.8, Eosinophils (%) (Auto) 2.7, Basophils (%) (Auto) 0.9, Neutrophils # (Auto ) 2.41, Lymphocytes # (Auto) 1.21, Monocytes # (Auto) 0.66, Eosinophils # (Auto ) 0.12, Basophils # (Auto) 0.04 07/11/17 11:18 Test 10/16/17 11:18 White Blood Count 4.46 K/uL (4.8-10.8) Red Blood Count 4.41 M/uL (4.7-6.1) Hemoglobin 13.9 g/dL (14.0-18.0) Hematocrit 40.6 % (42-52) Mean Corpuscular Volume 92.1 fL (80-100) Mean Corpuscular Hemoglobin 31.5 pg (25-34) Mean Corpuscular Hemoglobin Concent 34.2 g/dl (32-36) Platelet Count 191 K/uL (130-400) Mean Platelet Volume 10.4 fL (7.4-10.4) Neutrophils (%) (Auto) 54.1 % Lymphocytes (%) (Auto) 27.1 % Monocytes (%) (Auto) 14.8 % Eosinophils (%) (Auto) 2.7 % Basophils (%) (Auto) 0.9 % Neutrophils # (Auto) 2.41 K/uL (1.4-6.5) Lymphocytes # (Auto) 1.21 K/uL (1.2-3.4) Monocytes # (Auto) 0.66 K/uL (0.11-0.59) Eosinophils # (Auto) 0.12 K/uL (0-0.5) Basophils # (Auto) 0.04 K/uL (0-0.2) RDW Standard Deviation 49.8 fL (36.4-46.3) RDW Coefficient of Variation 14.6 % (11.5-14.5) Immature Granulocyte % (Auto) 0.4 % Immature Granulocyte # (Auto) 0.02 K/uL (0.00-0.02) Prothrombin Time 12.7 SECONDS (9.0-12.0) Prothromb Time International Ratio 1.2 (0.9-1.1) Activated Partial Thromboplast Time 29.7 SECONDS (21.0-31.0) Partial Thromboplastin Ratio 1.1 Anion Gap 7.0 mmol/L (3-11) Est Creatinine Clear Calc Drug Dose 118.9 ml/min Estimated GFR () 98.5 Estimated GFR (Non- 85.0 BUN/Creatinine Ratio 11.9 (10-20) Calcium Level 8.9 mg/dl (8.5-10.1) Laboratory results reviewed by pr Medications Administered Medications (Trade) Dose Ordered Sig/Keily Route Start Time Stop Time Status Last Admin Dose Admin Sodium Chloride 1,000 ml @ 999 mls/hr Q1H1M STAT IV 07/11/17 11:00 07/11/17 12:00 DC 07/11/17 11:24 999 MLS/HR Warfarin Sodium (Coumadin Tab) 15 mg NOW ONCE PO 07/11/17 13:15 07/11/17 13:16 DC 07/11/17 13:35 15 MG Enoxaparin Sodium (Lovenox Inj) 120 mg NOW ONCE SQ 07/11/17 13:15 07/11/17 13:16 DC 07/11/17 13:36 120 MG ED Course 1055: The patient was evaluated in room A9B. A complete history and physical exam was performed. 1320: I updated the patient on his test results. 1356: I reevaluated the patient. Discussed results and discharge instructions: He verbalized understanding and agreement. The patient is ready for discharge. Medical Decision The patient is a 36 year old white male with a past medical history of DVTs and HTN who presents to the ED with a cc of possible DVTs. The patient is on Coumadin but has not been taking it recently. Positive swelling in both legs, lightheadedness. Negative SOB, and chest pain. Differential diagnosis: Etiologies such as DVT, musculoskeletal, infection, joint effusion, trauma, lymphedema, idiopathic, CHF, as well as others were entertained. Patient was seen and evaluated the bedside. Patient does have a known history of prior DVTs in the bilateral lower extremities. Patient denies any shortness of breath or chest pain. Patient has not noticed any erythema, calor, lower extremity swelling. Patient states he has not been receiving his appropriate dose of his Coumadin at the nursing home. Patient did have blood work as well as coags completed. INR was 1.2. Patient had no DVT in the right lower extremity but did have DVT in the left lower extremity. Patient was given therapeutic Lovenox and was also given his normal dose of 15 mg of warfarin. Patient was told to continue to take the Lovenox as prescribed twice a day. Patient was also to resume his Coumadin. The Lovenox at serve as a stable bridge. Patient was deemed suitable for this treatment given his lack of hypoxic tachycardia or tachypnea. Patient was given strict follow-up, discharge, and follow-up instructions. Patient was safely discharged back to nursing home. Medication Reconcilliation Current Medication List: was personally reviewed by me Blood Pressure Screening Patient's blood pressure: Normal blood pressure Impression Primary Impression: DVT (deep venous thrombosis) Additional Impression: Subtherapeutic anticoagulation Scribe Attestation The scribe's documentation has been prepared under my direction and personally reviewed by me in its entirety. I confirm that the note above accurately reflects all work, treatment, procedures, and medical decision making performed by me. Departure Information Dispostion Home / Self-Care Prescriptions Warfarin Sodium (COUMADIN) 10 Mg Tab 10 MG PO DAILY for 30 Days, #30 TAB Please take 15mg (1.5 tab) every day with exception of 1 day where you take 20 mg (2 tab) Prov: Gregg Crouch M.D. 07/11/17 Enoxaparin (Lovenox) 120 Mg/0.8 Ml Inj 120 MG SQ Q12H for 7 Days, #14 SYR Prov: Gregg Crouch M.D. 07/11/17 Referrals [facility] (PCP) Forms HOME CARE DOCUMENTATION FORM, IMPORTANT VISIT INFORMATION, WORK / SCHOOL INSTRUCTIONS Patient Instructions Coumadin, DVT Dc, My [facility] Additional Instructions Please return to the emergency department if you have worsening or recurrent symptoms not amenable to at-home treatment. Please call for a follow-up appointment with her primary care physician. Please take your medications as prescribed. If you have other concerns and/or complaints please feel free to also call your primary care physician's office or return the ED for further evaluation, management, and treatment. Take your lovenox as prescribed. Please also take your warfarin as you were told to do so in the past. You have been examined and treated today on an emergency basis only. This is not a substitute for, or an effort to provide, complete comprehensive medical care. It is impossible to recognize and treat all injuries or illnesses in a single emergency department visit. It is therefore important that you follow up closely with [facility]. Call as soon as possible for an appointment. Thank you for your time and consideration. I look forward to speaking with you again soon. Please don't hesitate to call us if you have any questions. Problem Qualifiers Primary Impression: DVT (deep venous thrombosis) DVT location: lower extremity Affected thrombotic vein of extremity: popliteal Chronicity: unspecified Laterality: left Qualified Codes: I82.432 - Acute embolism and thrombosis of left popliteal vein
[2017-07-11 11:29] LABS: BASO % 0.9 %; BASO ABS # 0.04 K/uL (0-0.2); COMPLETE YES; EOS % 2.7 %; HEMATOCRIT 40.6 % (42-52); IG% 0.4 %; LYMPH % 27.1 %; LYMPH ABS # 1.21 K/uL (1.2-3.4); MEAN CELL VOLUME 92.1 fL (80-100); MEAN CORPUSCULAR HEMOGLOBIN 31.5 pg (25-34); MEAN CORPUSCULAR HGB CONC 34.2 g/dl (32-36); MEAN PLATELET VOLUME 10.4 fL (7.4-10.4); MONO % 14.8 %; NEUT % 54.1 %; PLATELET COUNT 191 K/uL (130-400); RED BLOOD COUNT 4.41 M/uL (4.7-6.1); WHITE BLOOD COUNT 4.46 K/uL (4.8-10.8)
[2017-07-11 11:38] LABS: INR 1.2 (0.9-1.1); PARTIAL THROMBOPLASTIN RATIO 1.1; PROTHROMBIN TIME (PATIENT) 12.7 SECONDS (9.0-12.0)
[2017-07-11 11:48] LABS: BUN/CREATININE RATIO 11.9 (10-20); CALCIUM 8.9 mg/dl (8.5-10.1); CREATININE 1.11 mg/dl (0.60-1.40)
--- NOTE | 2017-07-11 12:37 | DIAGNOSTIC IMAGING REPORT ---
ULTRASOUND VENOUS DOPPLER LWR EXT BILA CLINICAL HISTORY: Subtherapeutic INRs. History of DVT. COMPARISON STUDY: Venous Doppler ultrasound of the right lower extremity dated 03/02/2017 FINDINGS: On the right, no thrombus is visualized in the common femoral, superficial femoral, popliteal vein, or proximal trifurcation veins. On the left there is a duplicated superficial femoral vein. There is thrombus within the posterior superficial femoral vein branch, as well as thrombus in the left popliteal, peroneal and posterior tibial veins.. IMPRESSION: 1. No evidence of right lower extremity DVT 2. Left lower extremity DVT involving the superficial femoral vein, left popliteal vein, and peroneal posterior tibial veins. Electronically signed by: Kerwin Hampton M.D. 07/11/2017 12:36 PM Dictated Date/Time: 07/11/2017 12:31 PM
[2017-07-11] MEDS ORDERED: ENOXAPARIN 120 MG/0.8 ML SYR SQ ONE (13:15)
[2017-07-11] MEDS ORDERED: WARFARIN SOD 7.5 MG TAB PO ONE (13:15)
[2017-07-11] MEDS ORDERED: TIZA1CAP2 PO (13:25)
[2017-07-11] MEDS ORDERED: ENOX120I SQ (13:49)
[2017-07-11] MEDS ORDERED: WARF10TA PO (13:49)
[2017-07-11 14:24] VITALS: BP 128/87; PULSE 66; O2SAT 98
[2017-07-11] MEDS ORDERED: TRAZ1TAB8 PO (22:06)
[2017-07-11] MEDS ORDERED: MAGN400T6 PO (22:09)
[2017-07-11] MEDS ORDERED: THIA100T11 PO (22:09)
[2017-07-11] MEDS ORDERED: PROP1TAB PO (22:23)
== END 2017-07-11 14:27 | disposition home or self-care (01) ==
LOC: C.EDB 10:04 → C.EDA 14:27
DX: I82.432 Acute embolism and thrombosis of left popliteal vein (principal); R79.1 Abnormal coagulation profile; Z79.01 Long term (current) use of anticoagulants; F32.9 Major depressive disorder, single episode, unspecified; Z87.820 Personal history of traumatic brain injury; Z79.899 Other long term (current) drug therapy